=== PATIENT | female | born 1960 | race Caucasian/White ===

== ENCOUNTER 2020-09-13 14:26 | Inpatient (IN) | payer OTHER, MEDICAID ==
[~2020-09-13] VITALS: Ht 167.6 cm; Wt 74.1 kg
[2020-09-13] MEDS ORDERED: ONDANSETRON HCL 4 MG/2 ML VIAL IV ONE (14:45)
[2020-09-13] MEDS ORDERED: MORPHINE SULFATE 4 MG/ML SYR/VIAL IV ONE (14:45)
[2020-09-13] MEDS ORDERED: ACETAMINOPHEN 325 MG TAB PO ONE (15:00)
[2020-09-13 16:12] LABS: Urine Bacteria FEW /hpf (None Seen); Urine Blood 1+ /uL (Negative); Urine Mucus FEW (None Seen); Urine Specific Gravity 1.014 (1.001-1.035); Urine WBC 209 /hpf (0 - 5)
[2020-09-13] MEDS ORDERED: cefTRIAXone 1GM/50ML D5W 50 ML IV ONE (18:15)
[2020-09-13] MEDS ORDERED: ACETAMINOPHEN 500 MG TAB PO ONE (22:15)
[2020-09-13] MEDS ORDERED: SODIUM CHLORIDE 0.9% 1,000 ML IV ONE (22:15)
[2020-09-13] MEDS: metroNIDAZOLE 500MG/100ML 100 ML IV ONE (22:15)
[2020-09-13 22:28] LABS: Albumin 3.3 g/dL (3.4-5.0); Calcium 9.5 mg/dL (8.5-10.1); Potassium 3.9 mmol/L (3.5-5.1)
[2020-09-13 22:31] LABS: Bilirubin, Total 0.8 mg/dL (0.2-1.0); Total Protein 7.4 g/dL (6.4-8.2)
[2020-09-13 23:07] LABS: Basophils # (auto) 0.1 10 ^3/uL (0-0.2); Hematocrit 31.7 % (36.0-46.0); Monocytes # (auto) 0.3 10 ^3/uL (0-1.3); White Blood Cell 8.8 10^3/uL (4.4-10.8)
[2020-09-13 23:08] LABS: Basophils % (auto) 0.6 % (0.0-2.0); Eosinophils # (auto) 0.1 10 ^3/uL (0-0.8); Eosinophils % (auto) 0.7 % (0.0-7.0); Hemoglobin 10.1 g/dL (12.2-16.2); Lymphocytes # (auto) 0.5 10 ^3/uL (0.4-5.4); Lymphocytes % (auto) 6.3 % (10.0-50.0); Mean Corpuscular Hemoglobin 26.3 pg (28.0-32.0); Mean Corpuscular Hgb Conc. 31.8 g/dL (32.0-36.0); Mean Corpuscular Volume 82.6 fL (80.0-100.0); Neutrophils # (auto) 7.8 10 ^3/uL (1.6-8.6); Neutrophils % (auto) 89.4 % (37.0-80.0); Nucleated Red Blood Cells % 0.2 %; Red Blood Cells 3.84 10^6/uL (4.0-5.20); Red Cell Distribution Width 20.2 % (11.8-14.3)
[2020-09-14] MEDS ORDERED: ACETAMINOPHEN 325 MG TAB PO PRN (02:30)
[2020-09-14] MEDS ORDERED: ONDANSETRON HCL 4 MG/2 ML VIAL IV PRN (02:30)
[2020-09-14] MEDS ORDERED: TEMAZEPAM 15 MG CAP PO PRN (02:30)
[2020-09-14] MEDS: metroNIDAZOLE 500MG/100ML 100 ML IV ONE (02:49)
[2020-09-14] MEDS: SODIUM CHLORIDE 0.9% 1,000 ML IV SCH ×2 (02:49→19:20)
[2020-09-14] MEDS: MORPHINE SULFATE 4 MG/ML SYR/VIAL IV PRN ×5 (02:50→22:29)
[2020-09-14 04:21] VITALS: BP 130/64
[2020-09-14] MEDS ORDERED: METH2.5T PO (05:02)
[2020-09-14] MEDS ORDERED: AMLO-489 PO (05:02)
[2020-09-14] MEDS ORDERED: HYDR-4798 PO (05:02)
[2020-09-14] MEDS: metroNIDAZOLE 500MG/100ML 100 ML IV SCH ×3 (05:24→21:11)
[2020-09-14] MEDS: HYDROcodone-ACET 10/325MG TAB PO PRN ×2 (05:25→21:12)
[2020-09-14 08:11] LABS: Basophils # (auto) 0 10 ^3/uL (0-0.2); Basophils % (auto) 0.7 % (0.0-2.0); Eosinophils # (auto) 0.2 10 ^3/uL (0-0.8); Eosinophils % (auto) 3.1 % (0.0-7.0); Hematocrit 28.5 % (36.0-46.0); Hemoglobin 9.3 g/dL (12.2-16.2); Lymphocytes # (auto) 0.5 10 ^3/uL (0.4-5.4); Mean Corpuscular Hgb Conc. 32.7 g/dL (32.0-36.0); Mean Corpuscular Volume 82.6 fL (80.0-100.0); Monocytes # (auto) 0.2 10 ^3/uL (0-1.3); Monocytes % (auto) 2.9 % (0.0-12.0); Neutrophils # (auto) 4.4 10 ^3/uL (1.6-8.6); Neutrophils % (auto) 84.3 % (37.0-80.0); Nucleated Red Blood Cells % 0.1 %; Red Blood Cells 3.45 10^6/uL (4.0-5.20); Red Cell Distribution Width 19.7 % (11.8-14.3); White Blood Cell 5.3 10^3/uL (4.4-10.8)
[2020-09-14 08:29] LABS: Albumin 2.7 g/dL (3.4-5.0); Calcium 8.7 mg/dL (8.5-10.1); Potassium 3.4 mmol/L (3.5-5.1)
[2020-09-14 08:33] LABS: BUN/Creatinine Ratio 19.7; Bilirubin, Total 0.6 mg/dL (0.2-1.0); Total Protein 6.4 g/dL (6.4-8.2)
[2020-09-14] MEDS: FAMOTIDINE (10MG/ML) 2ML VL IV SCH ×2 (08:56→21:11)
[2020-09-14] MEDS: cefTRIAXone 1GM/50ML D5W 50 ML IV SCH (08:56)
[2020-09-14] MEDS: ZINC SULFATE 220mg CAP or TAB PO SCH (08:57)
[2020-09-14] MEDS: ASCORBIC ACID 500 MG TAB PO SCH ×2 (08:57→21:11)
[2020-09-14] MEDS: ENOXAPARIN SOD 40 MG/0.4 ML SYRINGE SC SCH (08:57)
[2020-09-14] MEDS: MULTIPLE VITAMIN TAB PO SCH (08:57)
[2020-09-14 09:00] VITALS: BP 134/70
[2020-09-14 13:00] VITALS: BP 119/69
[2020-09-14 17:00] VITALS: BP 131/73
[2020-09-14 22:00] VITALS: BP 118/62
[2020-09-15 05:00] VITALS: BP 145/77
[2020-09-15] MEDS: metroNIDAZOLE 500MG/100ML 100 ML IV SCH ×2 (06:08→14:31)
[2020-09-15] MEDS: HYDROcodone-ACET 10/325MG TAB PO PRN ×3 (06:08→19:12)
[2020-09-15 07:05] LABS: Basophils # (auto) 0 10 ^3/uL (0-0.2); Eosinophils # (auto) 0.3 10 ^3/uL (0-0.8); Lymphocytes # (auto) 0.4 10 ^3/uL (0.4-5.4); Monocytes # (auto) 0.2 10 ^3/uL (0-1.3)
[2020-09-15 07:07] LABS: Basophils % (auto) 1.2 % (0.0-2.0); Eosinophils % (auto) 8.3 % (0.0-7.0); Hematocrit 26.6 % (36.0-46.0); Hemoglobin 8.5 g/dL (12.2-16.2); Lymphocytes % (auto) 11.2 % (10.0-50.0); Mean Corpuscular Hemoglobin 26.4 pg (28.0-32.0); Mean Corpuscular Hgb Conc. 31.8 g/dL (32.0-36.0); Mean Corpuscular Volume 83.1 fL (80.0-100.0); Monocytes % (auto) 4.4 % (0.0-12.0); Neutrophils # (auto) 2.8 10 ^3/uL (1.6-8.6); Neutrophils % (auto) 74.9 % (37.0-80.0); Nucleated Red Blood Cells % 0.1 %; Red Blood Cells 3.21 10^6/uL (4.0-5.20); Red Cell Distribution Width 19.9 % (11.8-14.3); White Blood Cell 3.8 10^3/uL (4.4-10.8)
[2020-09-15 07:21] LABS: Potassium 3.3 mmol/L (3.5-5.1)
[2020-09-15 07:30] LABS: Albumin 2.3 g/dL (3.4-5.0); Bilirubin, Total 0.3 mg/dL (0.2-1.0); Calcium 8.3 mg/dL (8.5-10.1); Total Protein 5.9 g/dL (6.4-8.2)
[2020-09-15 09:00] VITALS: BP 137/75
[2020-09-15] MEDS: ZINC SULFATE 220mg CAP or TAB PO SCH (09:08)
[2020-09-15] MEDS: ASCORBIC ACID 500 MG TAB PO SCH (09:08)
[2020-09-15] MEDS: ENOXAPARIN SOD 40 MG/0.4 ML SYRINGE SC SCH (09:08)
[2020-09-15] MEDS: MULTIPLE VITAMIN TAB PO SCH (09:08)
[2020-09-15] MEDS: cefTRIAXone 1GM/50ML D5W 50 ML IV SCH (09:09)
[2020-09-15] MEDS: MORPHINE SULFATE 4 MG/ML SYR/VIAL IV PRN ×2 (09:10→13:14)
[2020-09-15] MEDS: FAMOTIDINE (10MG/ML) 2ML VL IV SCH (09:42)
[2020-09-15] MEDS: SODIUM CHLORIDE 0.9% 1,000 ML IV SCH (11:50)
[2020-09-15 13:00] VITALS: BP 122/71
[2020-09-15] MEDS ORDERED: DOCUSATE SOD 100 MG CAP PO ONE (13:30)
[2020-09-15 17:00] VITALS: BP 107/63
[2020-09-15 17:45] VITALS: BP 110/65
[2020-09-15] MEDS ORDERED: DOCUSATE SOD 100 MG CAP PO SCH (22:00)
== END 2020-09-15 20:55 | disposition short-term general hospital (02) | DRG 755 ==
LOC: EDBD 14:26 → ER 14:26 → WEST WING 09-14 02:24
PROVIDERS: ADMIT Nurse Practitioner Family; ATTEND Nurse Practitioner Family
DX: C56.9 Malignant neoplasm of unspecified ovary (principal); C77.5 Secondary and unspecified malignant neoplasm of intrapelvic lymph nodes; N13.6 Pyonephrosis; K57.92 Diverticulitis of intestine, part unspecified, without perforation or abscess without bleeding; C78.5 Secondary malignant neoplasm of large intestine and rectum; K59.00 Constipation, unspecified; E86.0 Dehydration; K52.9 Noninfective gastroenteritis and colitis, unspecified; Z20.822 Contact with and (suspected) exposure to COVID-19; Z80.1 Family history of malignant neoplasm of trachea, bronchus and lung; Z85.43 Personal history of malignant neoplasm of ovary; Z88.5 Allergy status to narcotic agent
CPT/HCPCS: 36415; 74176; 76775; 80053; 81001; 83036; 83605; 83690; 85025; 87040; 87086; 87426; 96361; 96365; 96367; 96375; G0378; J0696; J2405; J3490

== ENCOUNTER 2020-12-16 09:39 | Emergency (ER) | payer MEDICAID, OTHER ==
[~2020-12-16] VITALS: Ht 175.3 cm; Wt 61.2 kg
[~2020-12-16 09:39] MED LIST: AMLO-489 PO; HYDR-4798 PO; METH2.5T PO
[2020-12-16 10:07] VITALS: BP 123/76
[2020-12-16] MEDS ORDERED: SODIUM CHLORIDE 0.9% 1,000 ML IV ONE (10:45)
[2020-12-16 11:46] LABS: Basophils # (auto) 0 10 ^3/uL (0-0.2); Basophils % (auto) 0.8 % (0.0-2.0); Eosinophils # (auto) 0.2 10 ^3/uL (0-0.8); Eosinophils % (auto) 4.5 % (0.0-7.0); Hematocrit 30.3 % (36.0-46.0); Hemoglobin 9.5 g/dL (12.2-16.2); Lymphocytes # (auto) 0.3 10 ^3/uL (0.4-5.4); Lymphocytes % (auto) 6.6 % (10.0-50.0); Mean Corpuscular Hgb Conc. 31.5 g/dL (32.0-36.0); Mean Corpuscular Volume 82.7 fL (80.0-100.0); Monocytes # (auto) 0.1 10 ^3/uL (0-1.3); Monocytes % (auto) 1.4 % (0.0-12.0); Neutrophils % (auto) 86.7 % (37.0-80.0); Nucleated Red Blood Cells % 0.1 %; Red Blood Cells 3.66 10^6/uL (4.0-5.20); Red Cell Distribution Width 18.8 % (11.8-14.3); White Blood Cell 4.6 10^3/uL (4.4-10.8)
[2020-12-16 11:56] LABS: Potassium 3.6 mmol/L (3.5-5.1)
[2020-12-16 12:04] LABS: Albumin 3.1 g/dL (3.4-5.0); BUN/Creatinine Ratio 18.8; Bilirubin, Total 0.2 mg/dL (0.2-1.0); Calcium 9.5 mg/dL (8.5-10.1); Total Protein 7.7 g/dL (6.4-8.2)
== END 2020-12-16 14:38 | disposition home or self-care (01) ==
LOC: ER 09:39 → EDBD 09:39 → ER 14:38
DX: D64.9 Anemia, unspecified (principal); R42 Dizziness and giddiness; E44.1 Mild protein-calorie malnutrition; Z68.1 Body mass index [BMI] 19.9 or less, adult
CPT/HCPCS: 36415; 70450; 71045; 80053; 83880; 85025; 93005

== ENCOUNTER 2021-02-21 14:00 | Emergency (ER) | payer OTHER, MEDICAID ==
[~2021-02-21] VITALS: Ht 162.6 cm; Wt 68.0 kg
[2021-02-21] MEDS: metroNIDAZOLE 500MG/100ML 100 ML IV SCH ×3 (05:00→21:00)
[2021-02-21] MEDS ORDERED: HYDROmorphone HCL 2 MG/ML VL IV ONE ×2 (15:00→20:15)
[2021-02-21] MEDS ORDERED: ONDANSETRON HCL 4 MG/2 ML VIAL IV ONE ×2 (15:00→20:15)
[2021-02-21 17:39] LABS: Urine Bacteria FEW /hpf (None Seen); Urine Blood 1+ /uL (Negative); Urine Specific Gravity 1.017 (1.001-1.035); Urine WBC 930 /hpf (0 - 5); Urine WBC Clumps PRESENT /hpf (None Seen)
[2021-02-21 18:08] LABS: Albumin 3.2 g/dL (3.4-5.0); Calcium 9.2 mg/dL (8.5-10.1); Potassium 3.2 mmol/L (3.5-5.1)
[2021-02-21 18:11] LABS: BUN/Creatinine Ratio 23.4; Bilirubin, Total 0.7 mg/dL (0.2-1.0); Total Protein 7.2 g/dL (6.4-8.2)
[2021-02-21] MEDS ORDERED: cefTRIAXone 1GM/50ML D5W 50 ML IV ONE (18:30)
[2021-02-21] MEDS ORDERED: metroNIDAZOLE 500MG/100ML 100 ML IV ONE (18:30)
[2021-02-21] MEDS ORDERED: ACETAMINOPHEN 500 MG TAB PO ONE (20:15)
[2021-02-21] MEDS ORDERED: VANCOMYCIN 1GM/250ML 250 ML IV ONE ×2 (20:26→20:45)
[2021-02-21] MEDS ORDERED: SODIUM CHLORIDE 0.9% 1,000 ML IV ONE (20:45)
[2021-02-21 21:21] LABS: Basophils # (auto) 0 10 ^3/uL (0-0.2); Basophils % (auto) 0.9 % (0.0-2.0); Eosinophils # (auto) 0 10 ^3/uL (0-0.8); Eosinophils % (auto) 1.4 % (0.0-7.0); Hematocrit 23.8 % (36.0-46.0); Hemoglobin 8.1 g/dL (12.2-16.2); Lymphocytes # (auto) 0.1 10 ^3/uL (0.4-5.4); Lymphocytes % (auto) 7.4 % (10.0-50.0); Mean Corpuscular Hemoglobin 30.9 pg (28.0-32.0); Mean Corpuscular Hgb Conc. 34.2 g/dL (32.0-36.0); Mean Corpuscular Volume 90.6 fL (80.0-100.0); Monocytes # (auto) 0 10 ^3/uL (0-1.3); Monocytes % (auto) 2.4 % (0.0-12.0); Neutrophils # (auto) 1.6 10 ^3/uL (1.6-8.6); Neutrophils % (auto) 87.9 % (37.0-80.0); Red Blood Cells 2.63 10^6/uL (4.0-5.20)
[2021-02-21 21:22] LABS: Red Cell Distribution Width 25.9 % (11.8-14.3); White Blood Cell 1.8 10^3/uL (4.4-10.8)
[2021-02-22] MEDS ORDERED: SODIUM CHLORIDE 0.9% 1,000 ML IV ONE
[2021-02-22] MEDS ORDERED: HYDROmorphone HCL 2 MG/ML VL IV ONE (00:45)
[2021-02-22] MEDS ORDERED: ONDANSETRON HCL 4 MG/2 ML VIAL IV ONE (01:00)
[2021-02-22 01:46] VITALS: BP 100/47
[2021-02-22] MEDS ORDERED: cefTRIAXone 1GM/50ML D5W 50 ML IV SCH (06:00)
== END 2021-02-22 02:28 | disposition short-term general hospital (02) ==
LOC: ER 14:00 → EDBD 14:00 → ER 02-22 02:28
DX: K63.1 Perforation of intestine (nontraumatic) (principal); R10.9 Unspecified abdominal pain; R06.02 Shortness of breath; Z88.6 Allergy status to analgesic agent; Z20.822 Contact with and (suspected) exposure to COVID-19
CPT/HCPCS: 36415; 72192; 80053; 81001; 83605; 87040; 87086; 87426; 96365; 96367; 96368; 96375; 96376; 99285; J0696; J1170; J2405; J3370; J3490; J7030